=== PATIENT | male | born 1990 | race Caucasian/White ===

== ENCOUNTER 2018-08-28 20:30 | Emergency (ER) | payer OTHER ==
[~2018-08-28] VITALS: Ht 175.3 cm; Wt 97.7 kg
[2018-08-28 21:45] VITALS: BP 136/878
== END 2018-08-28 21:45 | disposition home or self-care (01) ==
LOC: ED 20:30
DX: S40.811A Abrasion of right upper arm, initial encounter (principal); V86.99XA Unspecified occupant of other special all-terrain or other off-road motor vehicle injured in nontraffic accident, initial encounter; F17.200 Nicotine dependence, unspecified, uncomplicated; Z23 Encounter for immunization
CPT/HCPCS: 90715